=== PATIENT | male | born 1975 | race Caucasian/White ===

== ENCOUNTER 2016-10-25 23:49 | Emergency (ER) | payer OTHER ==
[~2016-10-25] VITALS: Ht 162.6 cm; Wt 73.5 kg
[2016-10-25 23:56] VITALS: BP 125/80
--- NOTE | 2016-10-26 01:05 | NUR ---
PATIENT PRESENTS TO ED WITH ABD PAIN , ON AND OFF, VOMITING STARTED TODAY IN THE AFTERNOON ; SKIN IS PINK/WARM/DRY; AAOX4 WITH EVEN AND STEADY GAIT; LUNGS CLEAR BL; HR EVEN AND REGULAR; PT DENIES ANY FEVER, CP, SOB, OR COUGH AT THIS TIME; PATIENT STATES PAIN OF 6/10 AT THIS TIME; VSS; PATIENT POSITIONED FOR COMFORT; HOB ELEVATED; BEDRAILS UP X2; BED DOWN. ER MD MADE AWARE OF PT STATUS.
--- NOTE | 2016-10-26 01:05 | NUR ---
TO ER OF1
--- NOTE | 2016-10-26 01:07 | NUR ---
Patient being evaluated by physician.
--- NOTE | 2016-10-26 01:08 | NUR ---
PT BIB FAMILY C/O ABD PAIN , ON AND OFF, VOMITING STARTED TODAY IN THE AFTERNOON. ER MD TO [facility], ALL ORDER EXECUTED
[2016-10-26] MEDS ORDERED: ONDANSETRON 4 MG TAB PO ONE (01:10)
[2016-10-26 01:30] VITALS: BP 12/79
--- NOTE | 2016-10-26 01:30 | NUR ---
Patient discharged with v/s stable BY ER MD DR MARRERO . Written and verbal after care instructions given and explained BY ER MD DR MARRERO. Patient verbalized understanding. Ambulatory with steady gait. All questions addressed prior to discharge BY ER MD DR MARRERO. Advised to follow up with PMD .
== END 2016-10-26 01:30 | disposition home or self-care (01) ==
LOC: MED 23:49
DX: A08.4 Viral intestinal infection, unspecified (principal); R03.0 Elevated blood-pressure reading, without diagnosis of hypertension
CPT/HCPCS: 99283; Q0162